=== PATIENT | female | born 1980 | race African-American/Black ===

== ENCOUNTER 2023-10-27 12:20 | Emergency (ER) | payer OTHER ==
[~2023-10-27] VITALS: Ht 160 cm; Wt 113.4 kg
[2023-10-27] MEDS: Morphine 4mg INJECTION 4 MG/ML INJ IV ONE ×2 (13:44→16:43)
[2023-10-27] MEDS ORDERED: SODIUM CHLORIDE FLUSH 10 ML SYR IV PRN (13:45)
[2023-10-27 13:54] VITALS: PULSE 81; RESP 18; TEMP 98.2
[2023-10-27 14:10] LABS: BASOPHILS % 0.3 % (0.0-1.0); EOSINOPHILS # (AUTO) 0.1 (0.0-0.4); EOSINOPHILS % 0.4 % (0.0-6.0); HEMATOCRIT 43.9 % (34.2-44.1); HEMOGLOBIN 14.1 g/dL (12.0-16.0); LYMPHOCYTES # (AUTO) 3.1 (1.0-3.2); LYMPHOCYTES % 22.5 % (18.0-39.1); MEAN CORPUSCULAR HEMOGLOBIN 26.6 pg (28-32); MEAN CORPUSCULAR HGB CONC 32.1 g/dL (31-35); MEAN CORPUSCULAR VOLUME 82.8 fL (81-99); MONOCYTES # (AUTO) 0.9 (0.2-0.8); MONOCYTES % 6.1 % (4.4-11.3); NEUTROPHILS # (AUTO) 9.8 (2.1-6.9); NEUTROPHILS % 70.1 % (38.7-80.0); PLATELET COUNT 397 x10e3/uL (140-360); RED CELL DISTRIBUTION WIDTH 14.3 % (11.7-14.4); WHITE BLOOD COUNT 13.93 x10e3/uL (4.8-10.8)
[2023-10-27 14:15] LABS: INR 0.96; PROTHROMBIN TIME 13.5 seconds (11.9-14.5)
[2023-10-27 14:16] LABS: PARTIAL THROMBOPLASTIN TIME 31.5 seconds (23.8-35.5)
[2023-10-27 14:18] VITALS: PULSE 73; RESP 20; O2SAT 98
[2023-10-27 14:24] LABS: ANION GAP 15.5 mmol/L (8-16); BILIRUBIN,TOTAL 0.9 mg/dL (0.2-1.2); CALCIUM 9.3 mg/dL (8.4-10.2); CREATININE, SERUM 0.97 mg/dL (0.57-1.11); POTASSIUM 3.5 mmol/L (3.5-5.1); TOTAL PROTEIN 8.2 g/dL (6.5-8.1)
[2023-10-27 14:30] LABS: TROPONIN I 0.012 ng/mL (0-0.300)
[2023-10-27] MEDS ORDERED: SODIUM CHLORIDE 0.9% 100 ML ONE (16:25)
[2023-10-27] MEDS ORDERED: IOPAMIDOL 370 MG/ML 100 ML INFUS..BTL INJ ONE (16:25)
== END 2023-10-27 17:36 | disposition other institution (70) ==
LOC: ER 12:43
DX: R51.9 Headache, unspecified (principal); I60.9 Nontraumatic subarachnoid hemorrhage, unspecified; E11.9 Type 2 diabetes mellitus without complications; F17.210 Nicotine dependence, cigarettes, uncomplicated
CPT/HCPCS: 36415; 70450; 70496; 71045; 80053; 84484; 85025; 85610; 85730; 93005; 94799; 99284; J2270; J7050; Q9967